=== PATIENT | female | born 1955 | race Caucasian/White ===

== ENCOUNTER 2016-09-15 20:13 | Emergency (ER) | payer OTHER ==
[~2016-09-15] VITALS: Ht 160 cm; Wt 59.0 kg
--- NOTE | 2016-09-15 20:30 | ED GI/GU/ABDOMINAL COMPLAINT ---
History of Present Illness General Chief Complaint: Abdominal Pain/Flank Pain Stated Complaint: ABD PAIN, VOMITING, DIARRHEA PER PT Source: patient Exam Limitations: no limitations Allergies Coded Allergies: No Known Allergies (09/15/16) Reconcile Medications Levothyroxine Sodium 75 MCG TABLET 1 TAB PO DAILY THYROID (Reported) Multivitamin (Multi-Day Vitamins) 1 EACH TABLET 1 TAB PO DAILY SUPPLEMENT ( Reported) Naproxen (Naprosyn) 500 MG TABLET 1 TAB PO BID PRN pain Ondansetron (Zofran Odt) 4 MG TAB.RAPDIS 1 TAB SL TID PRN nasuea Triage Note: SEVERE ABD PAIN V/ D ALL DAY VOMITING BILE SHARP STABBING PAIN MIDDLE QUAD Triage Nurses Notes Reviewed? yes ? N Is pt currently ? No Onset: Abrupt Duration: getting worse Quality/Severity: sharpness, severe, stabbing Severity Numbers: 8 Location: epigastric Radiation: no radiation HPI: Patient is a 61-year-old female with a past medical history of hypothyroidism who presents emergency that last night patient a chicken and approximately at 3: 30 in the morning she had multiple episodes of nonbloody loose watery stool production that stopped in the morning however she complains of a gradual onset of localized epigastric tenderness that is now sharp stabbing and severe. Patient has had dry heaves with one episode of bilious emesis. Colonoscopy last performed was [address] Dubon unremarkable findings. Patient has had minimal sips of water today Denies any fever, chills, chest pain arm pain jaw pain cough shortness of breath hemoptysis back pain dysuria hematuria or vaginal bleeding vaginal discharge. Denies any significant NSAID use or alcohol use. (LEONARD VERDE,ODILON) Vital Signs & Intake/Output Vital Signs & Intake/Output Vital Signs Date Time Temp Pulse Resp B/P Pulse O2 O2 Flow FiO2 Ox Delivery Rate 09/16 000 98.3 90 18 128/84 99 Room Air 09/15 2218 98.2 89 18 124/82 99 Room Air Room Air 09/15 2016 98.0 94 22 130/85 100 Room Air ED Intake and Output 09/16 0000 09/15 1200 Intake Total 1000 Output Total 1 Balance 999 Intake, IV 1000 Output, 1 Emesis Patient 130 lb Weight Past History Travel History Traveled to [place] past 21 day No Medical History Any Pertinent Medical History? see below for history Endocrine: hypothyroidism Surgical History Surgical History: OOPHORECTOMY Family History Hx Contributory? No (ODILON ARAUJO) Review of Systems Review of Systems Constitutional: Reports: no symptoms. EENTM: Reports: no symptoms. Respiratory: Reports: no symptoms. Cardiovascular: Reports: no symptoms. GI: Reports: see HPI, abdominal pain. Genitourinary: Reports: no symptoms. Musculoskeletal: Reports: no symptoms. Skin: Reports: no symptoms. Neurological/Psychological: Reports: no symptoms. Hematologic/Endocrine: Reports: no symptoms. Immunologic/Allergic: Reports: no symptoms. All Other Systems: Reviewed and Negative (ODILON ARAUJO) Physical Exam Physical Exam General Appearance: moderate distress Gastrointestinal: normal bowel sounds, soft, MODERATE EPIGASTRIC AND RIGHT UPPER QUADRANT PAIN Comments: HEENT: Normal EENT exam, Neck: Supple, no lymphadenopathy, normal range of motion without pain or tenderness Back: Nontender, no CVA tenderness. gallops, normal JVP Respiratory: Chest nontender. No respiratory distress.breath sounds clear to auscultation bilaterally Extremity: No edema, no calf tenderness to palpation, normal and equal pulses. Neuro: Alert oriented x3, motor sensory normal, Skin: No appreciable rash on exposed skin, skin is warm and dry. Psych: Mood and affect is normal, memory and judgment is normal. (ODIOLN ARAUJO) Core Measures ACS in differential dx? No Severe Sepsis Present: No Septic Shock Present: No (CHRIS EUABNKS PA-C) Progress Differential Diagnosis: AAA, AMI, appendicitis, biliary colic, bowel obstruction , colon cancer, cholecystitis, diverticulitis, ectopic , endometritis, esophageal varices, gastritis, hepatitis, hernia, hemorrhoids, ischemic bowel, inflamm bowel dis, intrauterine , kidney stone, Patricia-Spencer tear, ovarian cyst, ovarian torsion, pancreatitis, PID/cervicitis, peptic ulcer, PUD/ GERD, perforated viscous, SBO, threatened AB, UTI/pyelo Initial ED EKG: none Hand-Off Endorsed To: CHRIS EUBANKS PA-C Endorsed Time: 2258 Pending: CT (ODILON ARAUJO) Plan of Care: Orders Procedure Date/time Status LIPASE 09/15 2058 Complete LACTIC ACID 09/15 2058 Complete COMPREHENSIVE METABOLIC PANEL 09/15 2058 Complete CBC WITHOUT DIFFERENTIAL 09/15 2058 Complete AMYLASE 09/15 2058 Complete Laboratory Tests 09/15/16 2359: Lactic Acid Cancelled 09/15/16 2105: Anion Gap 12, Estimated GFR > 60, BUN/Creatinine Ratio 26.7 H, Glucose 124 H, Lactic Acid 1.7, Calcium 9.8, Total Bilirubin 0.9, AST 19, ALT 29, Alkaline Phosphatase 122, Total Protein 7.2, Albumin 4.3, Globulin 2.9, Albumin/Globulin Ratio 1.5, Amylase 80, Lipase 283, CBC w Diff NO MAN DIFF REQ, RBC 4.88, MCV 88.8, MCH 29.8, RDW 12.4, MPV 8.1, Gran % 88.4 H, Lymphocytes % 7.6 L, Monocytes % 3.9, Eosinophils % 0, Basophils % 0.1, Absolute Granulocytes 8.5 H, Absolute Lymphocytes 0.7 L, Absolute Monocytes 0.4, Absolute Eosinophils 0, Absolute Basophils 0, PUBS MCHC 33.5 Patient initially was given morphine however episodes of vomiting immediately occurred in which Zofran was then administered along with Dilaudid for pain. Patient most likely had a adverse reaction to morphine 09/15/2016 10:44:04 PM patient currently is in no apparent distress and resting comfortably and has no symptoms. Blood work was unremarkable CT scan currently pending Discussed hand off with Yen Eubanks PA-C (LEONARD VERDE,ODILON) Diagnostic Imaging: Viewed by Me: CT Scan. Discussed w/RAD: CT Scan. Radiology Impression: PATIENT: NOBLE GONCALVES PRESENT AGE: 61 PATIENT ACCOUNT NO: [id number] : 54 LOCATION: [facility] ORDERING PHYSICIAN: ODILON VERDE SERVICE DATE: 09/15/16 EXAM TYPE: CAT - CT ABD & PELVIS W IV CONTRAST EXAMINATION: CT ABDOMEN AND PELVIS WITH CONTRAST CLINICAL INFORMATION: Nausea, vomiting, diarrhea. Abdominal pain. COMPARISON: None TECHNIQUE: Multidetector volumetric imaging was performed of the abdomen and pelvis before and after the IV administration of 94 mL of Optiray 320 intravenous contrast. Sagittal and coronal reformatted images were obtained on the technologist's workstation. DLP: 271 mGy-cm FINDINGS: LUNG BASES : The visualized lung bases are unremarkable. LIVER, GALLBLADDER, AND BILIARY TREE: The liver is normal in size, shape, and attenuation. There are adjacent 2.3 cm and 1.1 cm hypoattenuating lesions in segment 2 of the liver. These likely represent cysts. There is a 1 cm hypoattenuating lesion at the periphery of segment 6 of the liver which measures higher than simple fluid attenuation. 0.6 cm hypoattenuating lesion in segment 3 of the liver is too small to characterize fully. Additional smaller segment 6 hypoattenuating lesions are seen. The gallbladder is unremarkable with no evidence of radiopaque gallstones, gallbladder wall thickening, or obvious pericholecystic inflammatory changes. PANCREAS: Unremarkable. SPLEEN: Unremarkable. ADRENAL GLANDS: Unremarkable. KIDNEYS AND URETERS: The kidneys are normal in size, shape, and attenuation. No hydronephrosis, hydroureter, or calculi seen. No perinephric stranding. There is a 0.7 cm hypoattenuating right renal upper pole lesion which measures higher than simple fluid. BLADDER: Unremarkable. GASTROINTESTINAL TRACT: The stomach and small bowel are unremarkable. No dilated loops of bowel or obstruction. Normal appendix. No colonic wall thickening or inflammatory change. A portion of the left hemicolon is decompressed which somewhat limits evaluation for wall thickening. No free air or free fluid. ABDOMINAL WALL: No significant hernia is appreciated. LYMPH NODES: Normal. VASCULAR: Unremarkable. PELVIC VISCERA: The uterus and adnexa are unremarkable. Prominent left adnexal venous drainage. OSSEOUS STRUCTURES: No acute or suspicious osseous abnormality. Mild degenerative changes seen in the spine. IMPRESSION: No acute findings of the abdomen or pelvis. No inflammatory changes. Multiple hypoattenuating lesions in the liver with a hypoattenuating right upper pole renal lesion. The largest liver lesions are consistent with cysts, while the remainder are nonspecific. Follow-up is recommended. This could initially be performed with abdominal ultrasound, although the renal ultrasound from 2014 did not demonstrate the right renal lesion. MRI could also be performed for more definitive characterization. DICTATED BY: AMA BUCKNER MD DATE/TIME DICTATED:09/15/162300 [employer] ADF DEVELOPER:DARNELL DATE/TIME TRANSCRIBED:09/15/162300 CONFIDENTIAL, DO NOT COPY WITHOUT APPROPRIATE AUTHORIZATION. <Electronically signed in Other Vendor System> SIGNED BY: AMA BUCKNER MD 09/15/16 2309 Comments: 09/15/2016 10:57:36 PM: This patient was signed out to me by AMMON Espinoza. This patient is currently asymptomatic pending CT scan. (CHRIS EUBANKS PA-C) Departure Departure Condition: Stable Referrals: OCTAVIA OROZCO APRN (PCP/Family) Departure Forms: Customer Survey General Discharge Information (ODILON ARAUJO) Departure Disposition: HOME OR SELF CARE Clinical Impression Primary Impression: Gastroenteritis Additional Instructions: Take Zofran as prescribed for nausea. Take Tramadol as prescribed for pain. Rest and stay hydrated. Return for any worsening symptoms or concerns. Prescriptions: Current Visit Scripts Ondansetron (Zofran Odt) 1 TAB SL TID PRN nasuea #10 TAB Naproxen (Naprosyn) 1 TAB PO BID PRN pain #15 TAB (CHRIS EUBANKS PA-C) PA/COUNTER CLERK Co-Sign Statement Statement: ED Attending supervision documentation- [] I saw and evaluated the patient. I have also reviewed all the pertinent lab results and diagnostic results. I agree with the findings and the plan of care as documented in the PA's/COUNTER CLERK's documentation. [X] I have reviewed the ED Record and agree with the PA's/COUNTER CLERK's documentation. [] Additions or exceptions (if any) to the PAs/COUNTER CLERK's note and plan are summarized below: [] (ROMINA FENG,MILAD)
[2016-09-15 21:18] LABS: ABSOLUTE BASOPHIL COUNT 0 /CUMM (0.0-0.2); ABSOLUTE EOSINOPHIL COUNT 0 /CUMM (0.0-0.7); ABSOLUTE GRANULOCYTE CT 8.5 /CUMM (1.4-6.5); ABSOLUTE LYMPH COUNT 0.7 /CUMM (1.2-3.4); ABSOLUTE MONOCYTE COUNT 0.4 /CUMM (0.10-0.60); BASOPHIL % 0.1 % (0.0-2.0); EOSINOPHIL % 0 % (0-5); HEMATOCRIT 43.3 % (37-47); MEAN CORPUSCULAR HGB 29.8 PG (27.0-31.0); MEAN CORPUSCULAR HGB CONC 33.5 G/DL (33.0-37.0); MEAN CORPUSCULAR VOLUME 88.8 FL (81.0-99.0); MEAN PLATELET VOLUME 8.1 FL (7.4-10.4); PLATELET COUNT 250 /CUMM (130-400); RBC DISTRIBUTION WIDTH 12.4 % (11.5-14.5); RED BLOOD CELL CT 4.88 /CUMM (4.20-5.40); WHITE BLOOD CELL COUNT 9.6 /CUMM (4.8-10.8)
[2016-09-15 21:19] LABS: GRANULOCYTE % 88.4 % (42.2-75.2)
[2016-09-15] MEDS ORDERED: LEVOTHYROXINE75 MCG PO (22:27)
[2016-09-15] MEDS ORDERED: MULTI-DAY VITA1 EACH PO (22:28)
--- NOTE | 2016-09-15 23:09 | CT SCAN REPORT ---
EXAMINATION: CT ABDOMEN AND PELVIS WITH CONTRAST CLINICAL INFORMATION: Nausea, vomiting, diarrhea. Abdominal pain. COMPARISON: None TECHNIQUE: Multidetector volumetric imaging was performed of the abdomen and pelvis before and after the IV administration of 94 mL of Optiray 320 intravenous contrast. Sagittal and coronal reformatted images were obtained on the technologist's workstation. DLP: 271 mGy-cm FINDINGS: LUNG BASES: The visualized lung bases are unremarkable. LIVER, GALLBLADDER, AND BILIARY TREE: The liver is normal in size, shape, and attenuation. There are adjacent 2.3 cm and 1.1 cm hypoattenuating lesions in segment 2 of the liver. These likely represent cysts. There is a 1 cm hypoattenuating lesion at the periphery of segment 6 of the liver which measures higher than simple fluid attenuation. 0.6 cm hypoattenuating lesion in segment 3 of the liver is too small to characterize fully. Additional smaller segment 6 hypoattenuating lesions are seen. The gallbladder is unremarkable with no evidence of radiopaque gallstones, gallbladder wall thickening, or obvious pericholecystic inflammatory changes. PANCREAS: Unremarkable. SPLEEN: Unremarkable. ADRENAL GLANDS: Unremarkable. KIDNEYS AND URETERS: The kidneys are normal in size, shape, and attenuation. No hydronephrosis, hydroureter, or calculi seen. No perinephric stranding. There is a 0.7 cm hypoattenuating right renal upper pole lesion which measures higher than simple fluid. BLADDER: Unremarkable. GASTROINTESTINAL TRACT: The stomach and small bowel are unremarkable. No dilated loops of bowel or obstruction. Normal appendix. No colonic wall thickening or inflammatory change. A portion of the left hemicolon is decompressed which somewhat limits evaluation for wall thickening. No free air or free fluid. ABDOMINAL WALL: No significant hernia is appreciated. LYMPH NODES: Normal. VASCULAR: Unremarkable. PELVIC VISCERA: The uterus and adnexa are unremarkable. Prominent left adnexal venous drainage. OSSEOUS STRUCTURES: No acute or suspicious osseous abnormality. Mild degenerative changes seen in the spine. IMPRESSION: No acute findings of the abdomen or pelvis. No inflammatory changes. Multiple hypoattenuating lesions in the liver with a hypoattenuating right upper pole renal lesion. The largest liver lesions are consistent with cysts, while the remainder are nonspecific. Follow-up is recommended. This could initially be performed with abdominal ultrasound, although the renal ultrasound from 2015 did not demonstrate the right renal lesion. MRI could also be performed for more definitive characterization.
[2016-09-15] MEDS ORDERED: ZOFRAN ODT4 M1 SL (23:24)
[2016-09-15] MEDS ORDERED: TRAMADOL HCL50 M1 PO (23:24)
[2016-09-15] MEDS ORDERED: NAPROSYN500 M1 PO (23:25)
[2016-09-16 00:08] VITALS: BP 128/84
== END 2016-09-16 00:09 ==
LOC: ERH 20:13
PROVIDERS: Physician Assistant
DX: K52.9 Noninfective gastroenteritis and colitis, unspecified (principal)
CPT/HCPCS: 74177; 96361; 96374; 96375; J2405; J2765